=== PATIENT | female | born 1995 | race Caucasian/White ===

== ENCOUNTER 2021-05-28 10:57 | Emergency (ER) | payer OTHER, SELFPAY ==
[2021-05-28 11:09] VITALS: BP 112/76; PULSE 83; RESP 18; TEMP 36.7; O2SAT 100
--- NOTE | 2021-05-28 11:19 | ED.GENADULT ---
HPI - General Adult General Chief complaint: Nausea/Vomiting/Diarrhea Stated complaint: fever/nausea/diarrhea Time Seen by Provider: 05/28/21 11:50 Source: patient and RN notes reviewed Mode of arrival: ambulatory Limitations: no limitations History of Present Illness HPI narrative: 26-year-old female presents with concern for 5-day history of fever, nausea, diarrhea. She denies abdominal pain or vomiting. Reports decreased appetite. Reports approximately 3 diarrhea stools daily. She denies black, tarry, bloody stools. She reports she usually spikes a low-grade fever once daily. Reports she has been taking Tylenol for fever. Denies other intervention. Reports she was tested for Covid with a PCR test which was negative. She reports she has been vaccinated. She denies any new medications, food allergies. She denies any precipitating factors, denies upper respiratory symptoms. MD complaint: Vomiting Related Data Allergies Allergy/AdvReac Type Severity Reaction Status Date / Time Penicillins Allergy Mild hives Verified 05/28/21 12:03 Review of Systems Review of Systems: CONSTITUTIONAL: Denies malaise, chills, sweats, or fever. ENT: Denies rhinorrhea, congestion, sinus pain, otalgia or sore throat. CARDIOVASCULAR: Denies chest pain, palpitations, or edema. RESPIRATORY: Denies cough or dyspnea. GASTROINTESTINAL: Denies abdominal pain, vomiting, bloody, or mucous stools. Reports nausea and diarrhea GENITOURINARY: Denies dysuria or hematuria. SKIN: Denies rash or itching. MUSCULOSKELETAL: Denies back pain, joint pain, or myalgia. NEUROLOGIC: Denies numbness, weakness, or headache. PSYCHIATRIC: Denies anxiety or depression. All systems reviewed & are unremarkable except as noted in HPI and below PMFSH Comments At time of signature, agree with nursing past medical, surgical, social and family history. There is no relevant family history pertinent to the presenting complaint Exam Narrative: GENERAL: Well-appearing, well-nourished, and in no acute distress. HEAD: Normocephalic, atraumatic. EYES: PERRLA, conjunctivae clear, and EOMI. ENT: Nares clear, turbinates pink, no rhinorrhea or epistaxis. Mucous membranes moist. Oropharynx without edema, erythema, or lesions. Tonsils not enlarged and without exudate. NECK: Supple. No lymphadenopathy CHEST: Speaks in full sentences. Clear to auscultation, breath sounds equal no respiratory distress. HEART: Regular rate and rhythm. ABDOMEN: Soft, flat, nondistended. No guarding, rebound tenderness, or rigid. No pulsatilla masses. Bowel sounds present in all four quadrants. No organomegaly. Negative Viera?s sign. No periumbilical tenderness. No Supra public tenderness or distension. SKIN: Warm, dry, no rash. NEURO: Alert and oriented x3. PSYCH: Normal mood and affect Course Course Emergency Course: Patient is aware of diagnosis, understands and agrees to treatment plan. Anticipatory guidance given. Patient agrees to follow-up as directed and is aware of reasons to seek care at the emergency department. Portions of this record may have been created with voice recognition software Vital Signs Vital signs: Vital Signs Temperature 98.1 F 05/28/21 11:09 Pulse Rate 83 05/28/21 11:09 Respiratory Rate 18 05/28/21 11:09 Blood Pressure 112/76 05/28/21 11:09 Pulse Oximetry 100 05/28/21 11:09 Temperature 98.1 F 05/28/21 11:09 Pulse Rate 83 05/28/21 11:09 Respiratory Rate 18 05/28/21 11:09 Blood Pressure 112/76 05/28/21 11:09 Pulse Oximetry 100 05/28/21 11:09 Reviewed. Medical Decision Making MDM Narrative Medical decision making narrative: Exam findings show no acute concerns or changes; patient is non-toxic appearing and is in no distress. Patient is appropriate for outpatient treatment and follow-up. Differential Diagnosis Differential Diagnosis: Enteritis, acute diarrhea, traveler's diarrhea, food poisoning Vital Signs Vital Signs: Vital Signs T
== END 2021-05-28 12:16 | disposition home or self-care (01) ==
PROVIDERS: Emergency Provider Nurse Practitioner
DX: R19.7 Diarrhea, unspecified (principal)
CPT/HCPCS: 99213; G0463